=== PATIENT | female | born 2005 | race Asian ===

== ENCOUNTER 2024-03-23 06:36 | Emergency (ER) | payer SELFPAY ==
[2024-03-23] MEDS ORDERED: Metoclopramide HCl 10 MG (2 mL) VIAL ONE (07:21)
[2024-03-23] MEDS ORDERED: Ketorolac Tromethamine 30 MG (1 mL) VIAL ONE (07:21)
[2024-03-23 08:07] LABS: ALT (SGPT) 15 U/L (8-55); AST (SGOT) 18 U/L (5-34); Albumin 3.8 g/dL (3.5-5.0); Alkaline Phosphatase 55 U/L (40-110); Anion Gap 14 mmol/L (10-20); BUN (Urea Nitrogen) 12 mg/dL (7.0-18.7); Bilirubin, Total 0.8 mg/dL (0.2-1.2); Calc. Creatinine Clearance 0 mL/min (70-130); Calcium 8.6 mg/dL (7.8-10.44); Carbon Dioxide 19 mmol/L (22-29); Chloride 105 mmol/L (98-107); Estimated GFR 97; Globulin 2.9 g/dL (2.4-3.5); Glucose 130 mg/dL (70-105); Potassium 3.4 mmol/L (3.5-5.1); Protein, Total 6.7 g/dL (6.0-8.3); Sodium 135 mmol/L (136-145)
[2024-03-23 08:09] LABS: #Basophils 0.02 10x3/uL (0.0-0.2); #Neutrophils 16.19 10x3/uL (1.5-8.4); %Basophils 0.1 % (0.0-2.0); %Lymphocytes 5.7 % (18.0-47.0); %Monocytes 13.8 % (0.0-10.0); %Neutrophils 79.5 % (40.0-75.0); Hematocrit 37.2 % (34.9-44.5); Hemoglobin 12.5 g/dL (12.0-15.5); Mean Corpuscular HGB CONC 33.6 g/dL (32.0-36.0); Mean Corpuscular Hemoglobin 28.9 pg (27.0-33.0); Mean Corpuscular Volume 85.9 fL (81.6-98.3); Mean Platelet Volume 9.9 fL (7.4-10.4); Platelet Count 154 10x3/uL (150-450); RBC Distribution Width 12.7 % (11.5-14.5); Red Blood Cell (RBC) Count 4.33 10x6/uL (3.90-5.03); White Blood Cell (WBC) Count 20.4 10x3/uL (3.5-10.5)
== END 2024-03-23 09:20 | disposition home or self-care (01) ==
LOC: CSHERS 06:36
DX: B34.9 Viral infection, unspecified (principal); R51.9 Headache, unspecified
CPT/HCPCS: 36415; 36416; 80053; 83605; 85025; 96374; 96375; J1885; J2765